=== PATIENT | male | born 1970 | race Two or more races ===

== ENCOUNTER 2022-11-22 02:34 | Emergency (ER) | payer OTHER ==
[~2022-11-22] VITALS: Ht 180.3 cm; Wt 102.1 kg
[2022-11-22] MEDS ORDERED: SYNTHROID175 MCG PO (02:55)
[2022-11-22] MEDS ORDERED: FEBUXOSTAT40 MG PO (02:55)
[2022-11-22] MEDS ORDERED: CANDESARTAN CIL16 MG PO (02:56)
[2022-11-22] MEDS ORDERED: FARXIGA10 MG PO (02:56)
[2022-11-22] MEDS ORDERED: RAMIPRIL10 MG PO (02:56)
== END 2022-11-22 04:41 | disposition left against medical advice (07) ==
LOC: ER 02:34
DX: Z53.21 Procedure and treatment not carried out due to patient leaving prior to being seen by health care provider (principal)